=== PATIENT | female | born 1970 | race Caucasian/White ===

== ENCOUNTER 2016-06-25 06:28 | Day surgery (SDC) | payer OTHER ==
[2016-04-29 14:30] VITALS: BMI 34.0
--- NOTE | 2016-05-03 20:42 | HISTORY & PHYSICAL EXAMINATION ---
DATE OF ADMISSION: 05/07/2016 SUBJECTIVE AND CHIEF COMPLAINT: Left shoulder pain. HISTORY OF PRESENT ILLNESS: The patient is a 45-year-old female who follows up with left shoulder pain. She states that the pain was nontraumatic in nature. The symptoms occur constantly. She describes the pain as aching, burning and sharp at times. She has tried cortisone injections and physical therapy with no relief. She would like to proceed with subacromial decompression of the left shoulder with possible SLAP repair with possible biceps tenodesis. PAST MEDICAL HISTORY: Significant for hypertension, luk-vdibiqk-gcsltzvoq diabetes, shortness of breath with climbing up a flight of stairs and walking, GERD. PAST SURGICAL HISTORY: C-spine surgery, section, lymph node removal of left arm. SOCIAL HISTORY: She denies alcohol. She denies smoking or tobacco use. She denies IV drug use or illegal drug use. She lives in a 2-anthony house. She is currently on disability. FAMILY HISTORY: Significant for dad having a heart attack. MEDICATIONS: Fluoxetine 20 mg 1 tablet in the morning, lisinopril 20 mg 1 tablet every day, metformin 500 mg 2 times a day, Neurontin 300 mg p.r.n. ALLERGIES: AMOXICILLIN AND PCN. REVIEW OF SYSTEMS: She denies fevers, chills, headaches, weight loss, double vision, blurry vision, sore throat, hearing loss, tremors, dizziness, numbness or tingling, tired, thirsty, hot and cold intolerance, abdominal pain, nausea, vomiting, diarrhea, chest pain, swelling into the legs or feet, frequency going to the bathroom, pain and burning with urination, wheezing, cough, shortness of breath, depression, suicide, thoughts to harm herself or harm others, nervousness or anxiousness. She is positive for joint pain, stiffness and swelling of the left shoulder. OBJECTIVE: GENERAL APPEARANCE: The patient is a 45-year-old female who is sitting in no acute distress, well dressed, well nourished. She is awake, alert and oriented x3. PHYSICAL EXAMINATION: VITAL SIGNS: She is 5 feet 6 inches tall, 214 pounds, blood pressure 144/94. HEENT: Extraocular movements are intact. PERRLA. Mucosa is moist. No septal deviation. NECK: Supple with no lymphadenopathy, no JVD, no thyromegaly. HEART: Regular rate and rhythm without murmurs or gallops. LUNGS: Clear to auscultation. No wheezing or rhonchi. ABDOMEN: Soft, nontender, nondistended. Normal bowel sounds. No hepatosplenomegaly. EXTREMITIES: Paying particular attention to the left shoulder, she has a decreased range of motion, active forward flexion to 90 degrees, abduction to 90 degrees, external rotation to 45 degrees. She has a positive [place] Kory test, positive empty can test, positive Neer test, negative [place]. NEUROLOGIC: Cranial nerves II-XII are intact. Pulses were compared bilaterally and were equal. IMAGING: MRI shows tearing of the superior glenoid labrum, mild supraspinatus tendinopathy, and early arthritic changes of the acromioclavicular joint. IMPRESSION: Left shoulder pain with possible tear of the superior labrum. PLAN: The patient will be scheduled for a subacromial decompression of the left shoulder with possible SLAP repair with possible biceps tenodesis. The patient has failed conservative therapy including cortisone injections and physical therapy. She wishes to proceed with a left shoulder subacromial decompression, possible biceps tenodesis, possible SLAP repair. Risks and benefits to surgery were discussed that included but not limited to infection, DVT, pain, stiffness, need for revision surgeries, failure to relieve all symptoms, re-tear, damage to blood vessels, nerve damage and anesthesia risks were all discussed with the patient and she wishes to proceed. All questions were answered to her satisfaction. JOSE ELIAS
--- NOTE | 2016-06-22 11:26 | HISTORY & PHYSICAL EXAMINATION ---
DATE OF ADMISSION: 06/25/2016 SUBJECTIVE CHIEF COMPLAINT: Left shoulder pain. HISTORY OF PRESENT ILLNESS: The patient is a 45-year-old female who follows up with left shoulder pain, states that the pain is nontraumatic in nature. Symptoms occur constantly. She describes the pain as aching, burning and sharp at times. She has tried cortisone injections and physical therapy without any relief. She would like to proceed with a subacromial decompression left shoulder, possible SLAP repair with possible biceps tenodesis. PAST MEDICAL HISTORY: Significant for hypertension, non-insulin dependent diabetes, shortness of breath with climbing up a flight of stairs while walking and GERD. PAST SURGICAL HISTORY: C-spine surgery, section, lymph node removal of the left arm. SOCIAL HISTORY: She denies alcohol. She denies smoking or tobacco use. She denies IV drug use or illegal drug use. She lives in a 2-anth[address] house. She is currently on disability. FAMILY HISTORY: Significant for dad having a heart attack. MEDICATIONS: Fluoxetine 20 mg 1 tab in the morning, lisinopril 20 mg 1 tablet daily, metformin 500 mg 2 times daily, Neurontin 300 mg p.r.n., metformin 25 mg 1 tab daily. ALLERGIES: AMOXICILLIN AND PENICILLIN. REVIEW OF SYSTEMS: She denies fevers, chills, headaches, weight loss, double vision, blurry vision, sore throat, hearing loss, tremors, dizziness, numbness or tingling, tired, thirsty, hot and cold intolerance, abdominal pain, nausea, vomiting, diarrhea, chest pain, swelling into the legs or feet, frequency going to the bathroom, pain or burning with urination, wheezing, cough, shortness of breath, depression, thoughts to harm herself or harm others, nervousness or anxiousness. She is positive for joint pain, stiffness and swelling of the left shoulder. OBJECTIVE: GENERAL APPEARANCE: The patient is a 45-year-old female sitting in no acute distress, well dressed, well nourished. She is awake, alert and oriented x3. VITAL SIGNS: She is 5 foot 6 inches tall, 214 pounds, blood pressure is 140/80. HEAD, EYES, EARS, NOSE, AND THROAT: Extraocular movements are intact. PERRLA. Mucosa was moist. No septal deviation. NECK: Supple with no lymphadenopathy, no JVD, no thyromegaly. HEART: Regular rate and rhythm without murmurs or gallops. LUNGS: Clear to auscultation with no wheezing or rhonchi. ABDOMEN: Soft, nontender, nondistended. Normal bowel sounds, no hepatosplenomegaly. EXTREMITIES: Paying particular attention to the left shoulder. She has decreased range of motion, active forward flexion to 90 degrees, abduction to 90 degrees, external rotation of 45 degrees. She has a positive Terrazas-Kory test, positive empty can test, positive Neer impingement test. Negative [place]. NEUROLOGIC EXAMINATION: Cranial nerves II-XII are intact. Pulses were compared bilaterally and were equal. IMAGING: MRI shows tearing of the superior glenoid labrum, supraspinatus tendinopathy and early arthritic changes in the AC joint. IMPRESSION: Left shoulder pain with possible tear of the superior labrum. PLAN: The patient is scheduled for subacromial decompression of the left shoulder with possible SLAP repair and possible biceps tenodesis. The patient has failed conservative therapies including cortisone injections and physical therapy. She wishes to proceed with a left shoulder subacromial decompression, possible biceps tenodesis, possible SLAP repair. Risks and benefits to surgery were discussed and included but not limited to infection, DVT, pain, stiffness, need for revision surgeries, failure to relieve all symptoms, retear, damage to blood vessels, nerve damage and anesthesia risks were all discussed and the patient wishes to proceed. All questions were answered to her satisfaction. JOSE ELIAS
[~2016-06-25] VITALS: Ht 167.6 cm; Wt 97.3 kg
[~2016-06-25 06:28] MED LIST: ALLERGY OTC PO; FLUO20CA35 PO; GABA-113 PO; GLC/500 PO; LACTATED RINGER'S 1000ML 1,000 ML IV SCH; LISI-461 PO; VANCOMYCIN 1GM/270ML NSS 270 ML IV SCH; ZNTT/150 PO
[2016-06-25] MEDS ORDERED: ROPIVACAINE 0.5% 5 MG/ML 30 ML VIAL ONE (06:34)
--- NOTE | 2016-06-25 06:48 | History & Physical Bridge Note ---
H&P Re-Evaluation Bridge Note: I have examined the patient, reviewed the History & Physical and in the interval since the performance of the History & Physical I have noted the following changes of clinical significance: No changes noted
[2016-06-25] MEDS ORDERED: DULO-24 PO (07:06)
[2016-06-25] MEDS ORDERED: METO25TA3 PO (07:11)
--- NOTE | 2016-06-25 07:18 | DIAGNOSTIC IMAGING REPORT ---
CHEST 2 VIEWS ROUTINE HISTORY: PREOPERATIVE EVALUATION COMPARISON: Chest 03/12/2015. FINDINGS: The lungs are clear. Cardiac silhouette is normal in size. No pleural effusions. No pneumothorax. Cervical spinal fusion hardware. IMPRESSION: No acute process. Electronically signed by: Romeo Gimenez M.D. 06/25/2016 7:17 AM Dictated Date/Time: 06/25/2016 7:16 AM
[2016-06-25 07:24] VITALS: BP 121/88; PULSE 84; TEMP 36.8; O2SAT 95; Ht 167.6 cm; Wt 97.3 kg
[2016-06-25] MEDS ORDERED: PROPOFOL IV EMULSION 10 MG/ML 20 ML VIAL IV ONE (08:07)
[2016-06-25] MEDS ORDERED: ONDANSETRON INJ 2 MG/ML 2 ML VIAL ONE (08:07)
[2016-06-25] MEDS ORDERED: MIDAZOLAM HCL 1 MG/ML 2ML VIAL ONE (08:07)
[2016-06-25] MEDS ORDERED: LIDOCAINE HCL 2% 2 ML VIAL (20MG/ML) ONE (08:07)
[2016-06-25] MEDS ORDERED: DEXAMETHASONE SOD INJ 4 MG/ML VIAL ONE (08:07)
[2016-06-25] MEDS ORDERED: FENTANYL CITRATE INJ 50 MCG/1 ML 2 ML VIAL ONE (08:07)
[2016-06-25 08:11] LABS: BUN/CREATININE RATIO 12.9 (10-20); CALCIUM 8.6 mg/dl (8.5-10.1); CREATININE 0.89 mg/dl (0.60-1.20); POTASSIUM 3.9 mmol/L (3.5-5.1)
[2016-06-25] MEDS ORDERED: SCOPOLAMINE 1.5 MG TDSY TD ONE ×2 (08:37→08:45)
[2016-06-25] MEDS ORDERED: LABETALOL HCL IV 5 MG/ML 20ML IV PRN (08:45)
[2016-06-25] MEDS ORDERED: ATROPINE SULFATE 0.1 MG/ML 5ML SYR IV PRN (08:45)
[2016-06-25] MEDS ORDERED: PROMETHAZINE HCL INJ 12.5 MG in SODIUM CHLORIDE 0.9% 50ML 50 ML IV PRN (08:45)
[2016-06-25] MEDS ORDERED: KETOROLAC TROMETHAMINE 30 MG/ML VIAL IV. PRN (08:45)
[2016-06-25] MEDS ORDERED: ONDANSETRON INJ 2 MG/ML 2 ML VIAL IV PRN ×2 (08:45→11:30)
[2016-06-25] MEDS ORDERED: FENTANYL CITRATE INJ 50 MCG/1 ML 2 ML VIAL IV PRN (08:45)
[2016-06-25] MEDS ORDERED: BUPIVACAINE 0.5 % 5 MG/1 ML MPF 30ML VIAL ONE (09:48)
[2016-06-25] MEDS ORDERED: LIDOCAINE/EPINEPHRINE 1% 20 ML VIAL ONE (09:48)
[2016-06-25] MEDS ORDERED: NEOSTIGMINE METHYLSULFATE 5 MG/5 ML SYR ONE (10:36)
[2016-06-25] MEDS ORDERED: GLYCOPYRROLATE INJ 0.2 MG/ML VIAL ONE (10:36)
[2016-06-25] MEDS ORDERED: ROCURONIUM BROMIDE 10 MG/ML 5 ML VIAL ONE (10:36)
--- NOTE | 2016-06-25 11:20 | [facility] Post Operative Brief Note ---
Immediate Operative Summary Operative Date Jun 25, 2016. Pre-Operative Diagnosis Left shoulder impingement, SLAP tear, biceps tear, synovitis Post-Operative Diagnosis Same as preop Procedure(s) Performed Left Shoulder Arthroscopy Subacromial Decompression, Biceps Tenodesis, extensive debridement Surgeon Dr. Joya Scheme Technician Surgeon(s) Henna Davies PA-C Estimated Blood Loss minimal Findings above Specimens none, as per surgeon Drains 0 Anesthesia geta Complication(s) None Disposition Recovery Room / PACU
[2016-06-25] MEDS ORDERED: OXYC-57 PO (11:21)
--- NOTE | 2016-06-25 11:26 | Discharge Instructions ---
Discharge Instructions Date of Service Jun 25, 2016. Admission Reason for Admission: Left Shoulder Superior Glenoid Labrum Lesion Discharge Discharge Diagnosis / Problem: Left shoulder Arthroscopy Biceps tenodesis, Subacromial decrompression Discharge Goals Goal(s): Decrease discomfort, Improve function Activity Recommendations Activity Limitations: per Instructions/Follow-up section . Instructions / Follow-Up Instructions / Follow-Up [facility] DISCHARGE INSTRUCTIONS: SHOULDER ARTHROSCOPY without Distal Clavicle Excision SELF CARE INSTRUCTIONS AFTER: A. You are allowed to use your arm actively as comfort allows. Recommend NOT doing repetitive overhead activity or heavy lifting. B. You should start Physical Therapy within 1-3 days from your surgery. You will be provided a prescription with specific restrictions, if needed, at time of discharge. C. You can discontinue the sling as comfort allows within one to two days after surgery. A. At 48 hours post-operatively, you may change your dressing. . (Leave white steri-strips intact if present). Use band-aids and change daily. You are allowed to shower at this time and get the incision area wet, but DO NOT soak or submerge incision area in water. (No baths, swimming pools, hot tubs) B. Do NOT apply soap or any ointment/lotions directly over incision. C. You may use ice as needed to operative shoulder SPECIAL CARE INSTRUCTIONS: VERY IMPORTANT TO READ AND REVIEW A. There are a few signs you need to watch for after you are home. Call [facility] at [phone] if you experience any of the following: a. Increased severe shoulder pain. Some pain is expected especially when you exercise b. Increased swelling in your shoulder or arm; pain or swelling in either upper extremity. (Note: swelling and stiffness is normal and expected for several weeks post op, depending on type of shoulder surgery you had). c. Any fluid or drainage from the incision; redness of the incision. d. Shortness of breath or chest pain. B. Please call [facility] at [phone] if you have any questions or concerns about your operation or recovery. C. Call your physician if: a. Temperature is greater than 101 degrees (F). b. Pain is not relieved by prescribed pain medications. c. Increase drainage or redness from incision. d. Unanswered questions or concerns. D. Pain Medication: a. You will be prescribed pain medication upon discharge that should last till your first post-operative appointment. b. You may also take Advil or Ibuprofen between medication doses if you do not have any contraindication to taking them. c. You may also take Advil or Ibuprofen in place of your pain medication if the pain is tolerable. d. If you experience nausea and/or skin rash, discontinue this medication and contact our office for an alternative medication. e. Caution- narcotic pain medication can cause constipation. FOLLOW UP VISIT: Please call [facility] at [phone] to schedule a follow up appointment 10-14 days from your surgery date. Current Hospital Diet Patient's current hospital diet: Regular Diet Discharge Diet Recommended Diet: Regular Diet Procedures Procedures Performed: Left Shoulder Arthroscopy Subacromial Decompression, Biceps Tenodesis, extensive debridement Pending Studies Studies pending at discharge: no Medical Emergencies . Who to Call and When: Medical Emergencies: If at any time you feel your situation is an emergency, please call 911 immediately. . Non-Emergent Contact Non-Emergency issues call your: Surgeon Call Non-Emergent contact if: temperature is above 101.5, your pain is worsening, wound has increased drainage, wound has increased redness . "Provider Documentation" section prepared by Aleksey Ny. . VTE Core Measure Inpt VTE Proph given/why not?: Treatment not indicated [place] Drug Monitoring Program Search Results: patient reviewed within database, no issues identified
[2016-06-25] MEDS ORDERED: IBUPROFEN 200 MG TAB PO PRN (11:30)
[2016-06-25] MEDS ORDERED: OXYCODONE/ACETAMINOPHEN 5-325 TAB PO PRN (11:30)
[2016-06-25 12:00] VITALS: BP 104/78; PULSE 87; TEMP 36.6; O2SAT 94
[2016-06-25 12:32] VITALS: BP 103/73; PULSE 97; TEMP 36.6; O2SAT 94
--- NOTE | 2016-06-25 12:47 | OPERATIVE REPORT ---
DATE OF OPERATION: 06/25/2016 PREOPERATIVE DIAGNOSES: Left shoulder impingement, SLAP tear, biceps tear, synovitis. POSTOPERATIVE DIAGNOSES: Same. PROCEDURES: Left shoulder subacromial decompression, biceps tenodesis, and extensive debridement. SURGEON: Dr. Joya. FITNESS AND WELLNESS INSTRUCTOR: Aleksey Ny PA-C who was necessary for assistance of procedure with positioning, prepping, draping, retraction, passing of sutures and closure. ANESTHESIA: General endotracheal anesthesia with interscalene block. SPECIMENS: None. COMPLICATIONS: None. ESTIMATED BLOOD LOSS: Minimal. INDICATIONS: The patient is a 46-year-old female with longstanding pain in the left shoulder. She has failed conservative measures including cortisone injection, physical therapy, and anti-inflammatory medications. Failing conservative measures, she wished to proceed with arthroscopy. Risks, benefits, and alternatives of surgery including but not limited to infection, DVT, pain, stiffness, need for revision surgery, failure to relieve all symptoms, damage to blood vessels, damage to nerves, risks of anesthesia discussed with the patient and she wished to proceed. PROCEDURE IN DETAIL: The patient was identified, laterality was confirmed and marked. She received a preoperative antibiotic as well as interscalene block. She was transferred to the operating room, placed in supine position, induced under general endotracheal anesthesia. She was then safely transferred to lateral decubitus position, secured by a patel bag and axillary roll was placed. All pressure points were well padded. Limb was placed in 10 pounds of lateral traction and then prepped and draped in usual sterile manner with ChloraPrep. I made a standard posterior viewing portal, made through a stab incision, bluntly entered the glenohumeral joint under spinal localization, established anterior superior lateral portal. She had degenerative tearing of the anterior, superior, and posterior aspect of the glenoid labrum. This was debrided back to a stable base utilizing a shaver. The superior labrum was probed and found to be stable to the superior glenoid. She had fairly degenerative tearing of the intra-articular portion of the biceps tendon near the biceps anchor. The more proximal portion appeared to be relatively normal. Given the tearing was greater than 50% thickness of the tendon, I elected to proceed with biceps tenodesis. I passed 2 sutures through the biceps tendon in a luggage tag fashion and then released the biceps from its insertion. I placed the 4 sutures into a 4.5 mm footprint anchor. I then made a pilot teacher hole in the bicipital groove. I loaded the anchor into this hole, tensioned the sutures and then impacted the anchor, locked the anchor and cut the sutures flush. We had good stability to the tenodesis. Synovitic change in the anterior aspect of the shoulder was debrided utilizing combination of zana as well as ablator. She had some minor undersurface fraying of the supraspinatus that was debrided. I removed the instrumentation from the joint, entered the subacromial space and established a lateral portal. She had fairly thickened bursa that was debrided. The bursal side of the rotator cuff was relatively normal. I then released the CA ligament with cautery and then performed a subacromial decompression, first removing the anterior inferior spur from laterally and then completing it with a cutting block technique. All instrumentation was then removed from the shoulder. Port sites were closed with nylon. Sterile dressing was applied and sling placed. All needle and sponge counts were correct at the end of the procedure. The patient was transferred to the PACU in stable condition without apparent complication. I attest to the content of the Intraoperative Record and any orders documented therein. Any exceptions are noted below. JOSE ELIAS
[2016-06-25 13:00] VITALS: BP 107/76; PULSE 94; TEMP 36.5; O2SAT 94
--- NOTE | 2016-06-25 13:27 | Anesthesiology Progress Note ---
Anesthesia Post Op Note Date & Time Jun 25, 2016 at 13:26 Vital Signs Pain Intensity: 1 Vital Signs Past 12 Hours Date Time Temp Pulse Resp B/P Pulse Ox O2 Delivery O2 Flow Rate FiO2 06/25/16 12:32 36.6 97 16 103/73 94 Room Air 0 06/25/16 12:00 36.6 87 16 104/78 94 Room Air 0 06/25/16 11:55 36.4 82 16 126/82 94 Room Air 06/25/16 11:45 88 16 130/84 94 Room Air 06/25/16 11:35 79 16 121/83 98 Room Air 06/25/16 11:25 83 16 124/77 97 Mask 10 06/25/16 11:15 37.2 93 16 118/82 97 Mask 10 06/25/16 09:45 37.2 88 16 131/85 95 Mask 06/25/16 09:35 82 18 130/89 98 Mask 10 06/25/16 09:25 81 16 128/90 99 Mask 10 06/25/16 09:17 37.6 90 16 134/83 95 Mask 10 06/25/16 07:24 36.8 84 18 121/88 95 Room Air Notes Mental Status: alert / awake / arousable, participated in evaluation Pt Amnestic to Procedure: Yes Nausea / Vomiting: adequately controlled Pain: adequately controlled Airway Patency, RR, SpO2: stable & adequate BP & HR: stable & adequate Hydration State: stable & adequate Anesthetic Complications: no major complications apparent
[2016-08-04] MEDS ORDERED: DIPH25CA65 PO (09:51)
[2016-08-04] MEDS ORDERED: METF1TAB53 PO (09:51)
[2016-09-08] MEDS ORDERED: PRLSR20 PO (09:49)
[2016-09-08] MEDS ORDERED: SITA50TA PO (09:49)
[2016-09-08] MEDS ORDERED: METF1TAB53 PO (09:49)
[2016-09-14] MEDS ORDERED: VITAMIN B12 PO (09:01)
== END 2016-06-25 13:30 | disposition home or self-care (01) ==
LOC: C.ACU 06:28
PROVIDERS: ATTEND Orthopaedic Surgery
DX: M25.812 Other specified joint disorders, left shoulder (principal); S43.432A Superior glenoid labrum lesion of left shoulder, initial encounter; S46.212A Strain of muscle, fascia and tendon of other parts of biceps, left arm, initial encounter; X58.XXXA Exposure to other specified factors, initial encounter; I10 Essential (primary) hypertension; E11.9 Type 2 diabetes mellitus without complications; K21.9 Gastro-esophageal reflux disease without esophagitis; Z86.73 Personal history of transient ischemic attack (TIA), and cerebral infarction without residual deficits; Z79.899 Other long term (current) drug therapy; Z79.84 Long term (current) use of oral hypoglycemic drugs

== ENCOUNTER → 2016-08-11 | Day surgery (SDC) | payer OTHER ==
[2016-08-04 09:51] VITALS: Ht 167.6 cm; Wt 96.4 kg
[~2016-08-11] VITALS: Ht 167.6 cm; Wt 96.4 kg
[~2016-08-11] MED LIST changes: -ALLERGY OTC PO; +DIPH25CA65 PO; +DULO-24 PO; +FENTANYL CITRATE INJ 50 MCG/1 ML 2 ML VIAL ONE; -FLUO20CA35 PO; -GLC/500 PO; -LACTATED RINGER'S 1000ML 1,000 ML IV SCH; +LIDOCAINE HCL 2% 2 ML VIAL (20MG/ML) ONE; +METF1TAB53 PO; +METO25TA3 PO; +MIDAZOLAM HCL 1 MG/ML 2ML VIAL ONE; +OXYC-57 PO; +PRLSR20 PO; +PROPOFOL IV EMULSION 10 MG/ML 20 ML VIAL IV ONE; +SITA50TA PO; +SODIUM CHLORIDE 0.9% 500ML 500 ML IV ONE; -VANCOMYCIN 1GM/270ML NSS 270 ML IV SCH; +VITAMIN B12 PO
--- NOTE | 2016-08-11 14:06 | Endo History and Physical ---
History & Physical Date of Service: Aug 11, 2016. Chief Complaint: DYSPHAGIA, EPIGASTIC PAIN, REFLUX Referring Physician: DR. MENSAH History of Present Illness 46 yo CF who presents for EGD secondary to GERD, Epigastric abdominal pain, and Dysphagia. Past Medical History Anxiety, Reflux, Hypertension, Depression Past Surgical History Hx Cardiac Surgery: Yes (CARDIAC CATH-NO STENTS) Hx Abdominal Surgery: Yes (,LAPAROSCOPY FOR ENDOMETRIOSIS X 2) Hx Post-Op Nausea and Vomiting: Yes (SEVERE NAUSEA/VOMITING) Hx Cancer Surgery: No Hx Thoracic Surgery: No Hx Orthopedic: Yes (CERVICAL FUSION, LEFT SHOULDER ARTHROSCOPY) Hx Urinary Tract Surgery: No Family History Colon CA Social History Smoking Status: Never Smoker Hx Substance Use: No Hx Alcohol Use: Yes (RARELY) Allergies Coded Allergies: Penicillins (Verified Allergy, Unknown, RASH, REDDNESS AND ITCHING, 08/04/16 ) Current Medications Reported Home Medications Medications Dose Route/Sig Max Daily Dose Days Date Category Benadryl Allergy (Diphenhydramine Hcl) 25 Mg Cap 1 Cap PO HS PRN 30 08/04/16 Reported Glucophage Ext Rel (Metformin Hcl) 1,000 Mg Tab 1,000 Mg PO QAM 08/04/16 Reported Percocet 5MG/325MG (Oxycodone/Acetaminophen) Tab 1-2 Tablets PO Q4H PRN 06/25/16 Rx Toprol-Xl (Metoprolol Succinate) 25 Mg Tabcr 25 Mg PO QAM 06/25/16 Reported Cymbalta (Duloxetine HCl) 20 Mg Cap 1 Cap PO QAM 30 06/25/16 Reported Zantac (Ranitidine HCl) 150 Mg Tab 150 Mg PO DAILY PRN 04/29/16 Reported Neurontin (Gabapentin) 300 Mg Cap 300 Mg PO HS PRN 04/29/16 Reported Zestril (Lisinopril) 10 Mg Tab 20 Mg PO QAM 03/12/15 Reported Vital Signs Weight (Kilograms): 96.36 Height (Feet): 5 Height (Inches): 6 Date Time Temp Pulse Resp B/P (MAP) Pulse Ox O2 Delivery O2 Flow Rate FiO2 08/11/16 13:41 37.0 88 16 131/87 (102) 96 Room Air Physical Exam General Appearance: WD/WN, no apparent distress Respiratory/Chest: Auscultation: breath sounds normal Cardiovascular: Heart Auscultation: RRR Abdomen: Bowel Sounds: normal Inspection & Palpation: soft, non-distended, no tenderness, guarding & rebound Assessment and Plan Assessment: 46 yo CF who presents for EGD secondary to GERD, Epigastric abdominal pain, and Dysphagia. Plan: Proceed with EGD.
--- NOTE | 2016-08-11 14:27 | Discharge Instructions ---
Endoscopy Patient Instructions Date / Procedure(s) Performed Aug 11, 2016. EGD Allergy Information Coded Allergies: Penicillins (Verified Allergy, Unknown, RASH, REDDNESS AND ITCHING, 08/04/16 ) Discharge Date / Findings Aug 11, 2016. Gastritis s/p biopsies Reflux esophagitis Medication Instructions 1) Start Omeprazole 20mg by mouth each morning 1/2 hour prior to breakfast. 2) OK to resume all medications today as prescribed Reported Home Medications Medications Dose Route/Sig Max Daily Dose Days Date Category Benadryl Allergy (Diphenhydramine Hcl) 25 Mg Cap 1 Cap PO HS PRN 30 08/04/16 Reported Glucophage Ext Rel (Metformin Hcl) 1,000 Mg Tab 1,000 Mg PO QAM 08/04/16 Reported Percocet 5MG/325MG (Oxycodone/Acetaminophen) Tab 1-2 Tablets PO Q4H PRN 06/25/16 Rx Toprol-Xl (Metoprolol Succinate) 25 Mg Tabcr 25 Mg PO QAM 06/25/16 Reported Cymbalta (Duloxetine HCl) 20 Mg Cap 1 Cap PO QAM 30 06/25/16 Reported Zantac (Ranitidine HCl) 150 Mg Tab 150 Mg PO DAILY PRN 04/29/16 Reported Neurontin (Gabapentin) 300 Mg Cap 300 Mg PO HS PRN 04/29/16 Reported Zestril (Lisinopril) 10 Mg Tab 20 Mg PO QAM 03/12/15 Reported Provider Instructions Activity Restrictions - No exercising or heavy lifting for 24 hours. - Do not drink alcohol the day of the procedure. - Do not drive a car or operate machinery until the day after the procedure. - Do not make any important decisions or sign important papers in 24 hours after the procedure. Following Day: - Return to full activity which may include returning to work/school. Diet Start your diet with liquids and light foods (jello, soup, juice, toast). Then eat your usual diet if not nauseated. Treatment For Common After Affects For mild abdominal pain, bloating, or excessive gas: - Rest - Eat lightly - Lie on right side Follow-Up Information Follow-up with DR. MENSAH as scheduled Anesthesia Information What You Should Know You have had a procedure that required some medicine to reduce anxiety and discomfort. This treatment is called moderate sedation. After receiving the treatment, you may be sleepy, but you will be able to breathe on your own. The effects of the treatment may last for several hours. Follow these instructions along with Activity/Diet recommendations noted above: * Do NOT do anything where dizziness or clumsiness would be dangerous. * Rest quietly at home today, then you can be up and about tomorrow. * Have a responsible person stay with you the rest of today. * You may have had an I.V. today. If so, you may take the dressing off later today. Recommendations Call your doctor if: * Trouble breathing * Continuous vomiting for more than 24 hours * Temperature above 101 degrees * Severe abdominal pain or bloating * Pain not relieved by pain medicine ordered * There is increased drainage or redness from any incision * A large amount of rectal bleeding greater than 2-3 tablespoons. (If you had a polyp/s removed or have hemorrhoids, a small amount of blood - from the rectum is to be expected.) * You have any unanswered questions or concerns. IN THE EVENT OF A SERIOUS EMERGENCY, GO TO THE NEAREST EMERGENCY ROOM Your discharge instructions were prepared by provider Henok Schmitz. Patient Instructions Signature Page Carla Collins Patient (or Guardian) Signature/Date: I have read and understand the instructions given to me by my caregivers. Caregiver/RN/Doctor Signature/Date: The above-named patient and/or guardian has received patient instructions on this date. + Original Patient Signature Page (only) stays with chart. Please make copy for patient.
--- NOTE | 2016-08-11 14:33 | GI REPORT ---
Procedure Date: 08/11/2016 1:55 PM Procedure: Upper GI endoscopy Indications: Epigastric abdominal pain, Dysphagia, Gastro-esophageal reflux disease Medicines: Monitored Anesthesia Care Complications: No immediate complications. Estimated Blood Loss: Estimated blood loss: none. Procedure: Pre-Anesthesia Assessment: - Prior to the procedure, a History and Physical was performed, and patient medications and allergies were reviewed. The patient's tolerance of previous anesthesia was also reviewed. The risks and benefits of the procedure and the sedation options and risks were discussed with the patient. All questions were answered, and informed consent was obtained. Prior Anticoagulants: The patient has taken no previous anticoagulant or antiplatelet agents. ASA Grade Assessment: II - A patient with mild systemic disease. After reviewing the risks and benefits, the patient was deemed in satisfactory condition to undergo the procedure. After obtaining informed consent, the endoscope was passed under direct vision. Throughout the procedure, the patient's blood pressure, pulse, and oxygen saturations were monitored continuously. The scope was introduced through the mouth, and advanced to the second part of duodenum. The upper GI endoscopy was accomplished without difficulty. The patient tolerated the procedure well. Findings: LA Grade B (one or more mucosal breaks greater than 5 mm, not extending between the tops of two mucosal folds) esophagitis with no bleeding was found. Localized mild inflammation characterized by erosions was found in the gastric antrum. Biopsies were taken with a cold forceps for histology. The examined duodenum was normal. Impression: - LA Grade B reflux esophagitis. - Gastritis. Biopsied. - Normal examined duodenum. Recommendation: - Resume previous diet. - Continue present medications. - Await pathology results. - Return to primary care physician as previously scheduled. Henok Schmitz, DO 08/11/2016 2:33:17 PM This report has been signed electronically. Note Initiated On: 08/11/2016 1:55 PM I attest to the content of the Intraoperative Record and orders documented therein, exceptions below
[2016-08-11 14:39] VITALS: BP 147/93; PULSE 93; O2SAT 94
--- NOTE | 2016-08-11 14:59 | Anesthesiology Progress Note ---
Anesthesia Post Op Note Date & Time Aug 11, 2016 at 14:59 Vital Signs Pain Intensity: 3 Vital Signs Past 12 Hours Date Time Temp Pulse Resp B/P (MAP) Pulse Ox O2 Delivery O2 Flow Rate FiO2 08/11/16 14:39 93 16 147/93 (111) 94 Room Air 08/11/16 14:24 89 16 132/88 (103) 94 Room Air 08/11/16 13:41 37.0 88 16 131/87 (102) 96 Room Air Notes Mental Status: alert / awake / arousable, participated in evaluation Pt Amnestic to Procedure: Yes Nausea / Vomiting: adequately controlled Pain: adequately controlled Airway Patency, RR, SpO2: stable & adequate BP & HR: stable & adequate Hydration State: stable & adequate Anesthetic Complications: no major complications apparent
== END | disposition home or self-care (01) ==
LOC: C.GI 13:12
PROVIDERS: ATTEND Internal Medicine
DX: R13.10 Dysphagia, unspecified (principal); K21.0 Gastro-esophageal reflux disease with esophagitis; K29.70 Gastritis, unspecified, without bleeding; I10 Essential (primary) hypertension; F32.9 Major depressive disorder, single episode, unspecified; F41.9 Anxiety disorder, unspecified; Z80.0 Family history of malignant neoplasm of digestive organs; Z79.84 Long term (current) use of oral hypoglycemic drugs; Z79.899 Other long term (current) drug therapy

== ENCOUNTER → 2016-09-13 | Day surgery (SDC) | payer OTHER ==
[2016-09-08 09:50] VITALS: Ht 167.6 cm; Wt 96.4 kg
[~2016-09-13] VITALS: Ht 167.6 cm; Wt 96.4 kg
[~2016-09-13] MED LIST changes: -FENTANYL CITRATE INJ 50 MCG/1 ML 2 ML VIAL ONE; -MIDAZOLAM HCL 1 MG/ML 2ML VIAL ONE; -ZNTT/150 PO
[2016-09-13 08:23] VITALS: TEMP 36.4
--- NOTE | 2016-09-13 08:42 | Endo History and Physical ---
History & Physical Date of Service: Sep 13, 2016. Chief Complaint: Rectal Bleeding, Change in bowel habits. Referring Physician: Christiano History of Present Illness 46 yo CF who presents for colonoscopy secondary to rectal bleeding and change in bowel habits. Past Medical History Anxiety, Reflux, Hypertension, Depression Past Surgical History Hx Cardiac Surgery: Yes (CARDIAC CATH-NO STENTS) Hx Internal Defibrillator: No Hx Pacemaker: No Hx Abdominal Surgery: Yes (,LAPAROSCOPY FOR ENDOMETRIOSIS X 2) Hx of Implantable Prosthesis: No Hx Post-Op Nausea and Vomiting: Yes (SEVERE NAUSEA/VOMITING) Hx Cancer Surgery: No Hx Thoracic Surgery: No Hx Orthopedic: Yes (CERVICAL FUSION, LEFT SHOULDER ARTHROSCOPY) Hx Urinary Tract Surgery: No Family History Colon CA Social History Smoking Status: Never Smoker Hx Substance Use: No Hx Alcohol Use: Yes (RARELY) Allergies Coded Allergies: Penicillins (Verified Allergy, Unknown, RASH, REDDNESS AND ITCHING, ) Current Medications Reported Home Medications Medications Dose Route/Sig Max Daily Dose Days Date Category Glucophage Ext Rel (Metformin Hcl) 1,000 Mg Tab 1,000 Mg PO HS 09/08/16 Reported Januvia (Sitagliptin Phosphate) 50 Mg Tab 50 Mg PO QAM 09/08/16 Reported Prilosec (Omeprazole) 20 Mg Capcr 20 Mg PO QAM 09/08/16 Reported Benadryl Allergy (Diphenhydramine Hcl) 25 Mg Cap 1 Cap PO HS PRN 30 08/04/16 Reported Toprol-Xl (Metoprolol Succinate) 25 Mg Tabcr 25 Mg PO QAM 06/25/16 Reported Cymbalta (Duloxetine HCl) 20 Mg Cap 1 Cap PO QAM 30 06/25/16 Reported Neurontin (Gabapentin) 300 Mg Cap 300 Mg PO HS PRN 04/29/16 Reported Zestril (Lisinopril) 10 Mg Tab 20 Mg PO QAM 03/12/15 Reported Vital Signs Weight (Kilograms): 96.36 Height (Feet): 5 Height (Inches): 6 Date Time Temp Pulse Resp B/P (MAP) Pulse Ox O2 Delivery O2 Flow Rate FiO2 09/13/16 08:23 36.4 90 20 155/97 (116) 95 Room Air Physical Exam General Appearance: WD/WN, no apparent distress Respiratory/Chest: Auscultation: breath sounds normal Cardiovascular: Heart Auscultation: RRR Abdomen: Bowel Sounds: normal Inspection & Palpation: soft, non-distended, no tenderness, guarding & rebound Assessment and Plan Assessment: 46 yo CF who presents for colonoscopy secondary to rectal bleeding and change in bowel habits. Plan: Proceed with colonoscopy.
--- NOTE | 2016-09-13 09:00 | Discharge Instructions ---
Endoscopy Patient Instructions Date / Procedure(s) Performed Sep 13, 2016. Colonoscopy Allergy Information Coded Allergies: Penicillins (Verified Allergy, Unknown, RASH, REDDNESS AND ITCHING, ) Discharge Date / Findings Sep 13, 2016. Internal hemorrhoids Fair bowel prep Medication Instructions Stopped Medication(s): Metformin Restart Stopped Medication(s): OK to resume all medications today as prescribed Reported Home Medications Medications Dose Route/Sig Max Daily Dose Days Date Category Glucophage Ext Rel (Metformin Hcl) 1,000 Mg Tab 1,000 Mg PO HS 09/08/16 Reported Januvia (Sitagliptin Phosphate) 50 Mg Tab 50 Mg PO QAM 09/08/16 Reported Prilosec (Omeprazole) 20 Mg Capcr 20 Mg PO QAM 09/08/16 Reported Benadryl Allergy (Diphenhydramine Hcl) 25 Mg Cap 1 Cap PO HS PRN 30 08/04/16 Reported Toprol-Xl (Metoprolol Succinate) 25 Mg Tabcr 25 Mg PO QAM 06/25/16 Reported Cymbalta (Duloxetine HCl) 20 Mg Cap 1 Cap PO QAM 30 06/25/16 Reported Neurontin (Gabapentin) 300 Mg Cap 300 Mg PO HS PRN 04/29/16 Reported Zestril (Lisinopril) 10 Mg Tab 20 Mg PO QAM 03/12/15 Reported Provider Instructions Activity Restrictions - No exercising or heavy lifting for 24 hours. - Do not drink alcohol the day of the procedure. - Do not drive a car or operate machinery until the day after the procedure. - Do not make any important decisions or sign important papers in 24 hours after the procedure. Following Day: - Return to full activity which may include returning to work/school. Diet Start your diet with liquids and light foods (jello, soup, juice, toast). Then eat your usual diet if not nauseated. Treatment For Common After Affects For mild abdominal pain, bloating, or excessive gas: - Rest - Eat lightly - Lie on right side Follow-Up Information Follow-up with Christiano as scheduled Anesthesia Information What You Should Know You have had a procedure that required some medicine to reduce anxiety and discomfort. This treatment is called moderate sedation. After receiving the treatment, you may be sleepy, but you will be able to breathe on your own. The effects of the treatment may last for several hours. Follow these instructions along with Activity/Diet recommendations noted above: * Do NOT do anything where dizziness or clumsiness would be dangerous. * Rest quietly at home today, then you can be up and about tomorrow. * Have a responsible person stay with you the rest of today. * You may have had an I.V. today. If so, you may take the dressing off later today. Recommendations Call your doctor if: * Trouble breathing * Continuous vomiting for more than 24 hours * Temperature above 101 degrees * Severe abdominal pain or bloating * Pain not relieved by pain medicine ordered * There is increased drainage or redness from any incision * A large amount of rectal bleeding greater than 2-3 tablespoons. (If you had a polyp/s removed or have hemorrhoids, a small amount of blood - from the rectum is to be expected.) * You have any unanswered questions or concerns. IN THE EVENT OF A SERIOUS EMERGENCY, GO TO THE NEAREST EMERGENCY ROOM Your discharge instructions were prepared by provider Henok Schmitz. Patient Instructions Signature Page Carla Collins Patient (or Guardian) Signature/Date: I have read and understand the instructions given to me by my caregivers. Caregiver/RN/Doctor Signature/Date: The above-named patient and/or guardian has received patient instructions on this date. + Original Patient Signature Page (only) stays with chart. Please make copy for patient.
--- NOTE | 2016-09-13 09:17 | GI REPORT ---
Procedure Date: 09/13/2016 8:35 AM Procedure: Colonoscopy Indications: Rectal bleeding, Change in bowel habits Medicines: Monitored Anesthesia Care Complications: No immediate complications. Estimated Blood Loss: Estimated blood loss: none. Procedure: Pre-Anesthesia Assessment: - Prior to the procedure, a History and Physical was performed, and patient medications and allergies were reviewed. The patient's tolerance of previous anesthesia was also reviewed. The risks and benefits of the procedure and the sedation options and risks were discussed with the patient. All questions were answered, and informed consent was obtained. Prior Anticoagulants: The patient has taken no previous anticoagulant or antiplatelet agents. ASA Grade Assessment: II - A patient with mild systemic disease. After reviewing the risks and benefits, the patient was deemed in satisfactory condition to undergo the procedure. After I obtained informed consent, the scope was passed under direct vision. Throughout the procedure, the patient's blood pressure, pulse, and oxygen saturations were monitored continuously. The On-site loaner was introduced through the anus and advanced to the terminal ileum. The colonoscopy was performed without difficulty. The patient tolerated the procedure well. The quality of the bowel preparation was fair. The terminal ileum, ileocecal valve, appendiceal orifice, and rectum were photographed. Findings: A large amount of semi-solid stool was found in the entire colon, interfering with visualization. Lavage of the area was performed using a large amount, resulting in clearance with fair visualization. Non-bleeding internal hemorrhoids were found during retroflexion. The hemorrhoids were small. Impression: - Stool in the entire examined colon. - Non-bleeding internal hemorrhoids. - No specimens collected. Recommendation: - Resume previous diet. - Continue present medications. - Repeat colonoscopy in 3 years for surveillance. - Return to primary care physician as previously scheduled. Henok Schmitz DO 09/13/2016 9:17:07 AM This report has been signed electronically. Note Initiated On: 09/13/2016 8:35 AM I attest to the content of the Intraoperative Record and orders documented therein, exceptions below
[2016-09-13 09:27] VITALS: BP 130/86; PULSE 78; O2SAT 97
--- NOTE | 2016-09-13 09:33 | Anesthesiology Progress Note ---
Anesthesia Post Op Note Date & Time Sep 13, 2016 at 09:32 Vital Signs Pain Intensity: 0 Vital Signs Past 12 Hours Date Time Temp Pulse Resp B/P (MAP) Pulse Ox O2 Delivery O2 Flow Rate FiO2 09/13/16 09:27 78 18 130/86 (101) 97 Room Air 09/13/16 09:12 81 18 135/77 (96) 96 Room Air 09/13/16 08:57 90 16 160/86 (110) 96 Room Air 09/13/16 08:23 36.4 90 20 155/97 (116) 95 Room Air Notes Mental Status: alert / awake / arousable, participated in evaluation Pt Amnestic to Procedure: Yes Nausea / Vomiting: adequately controlled Pain: adequately controlled Airway Patency, RR, SpO2: stable & adequate BP & HR: stable & adequate Hydration State: stable & adequate Anesthetic Complications: no major complications apparent
== END | disposition home or self-care (01) ==
LOC: C.GI 07:49
PROVIDERS: ATTEND Internal Medicine
DX: K64.8 Other hemorrhoids (principal); K62.5 Hemorrhage of anus and rectum; R19.4 Change in bowel habit; Z80.0 Family history of malignant neoplasm of digestive organs; I10 Essential (primary) hypertension; K21.9 Gastro-esophageal reflux disease without esophagitis; F32.9 Major depressive disorder, single episode, unspecified; F41.9 Anxiety disorder, unspecified; Z79.84 Long term (current) use of oral hypoglycemic drugs; Z79.899 Other long term (current) drug therapy

== ENCOUNTER 2016-09-30 10:20 | Day surgery (SDC) | payer OTHER ==
[2016-09-14 09:04] VITALS: BMI 35.0
--- NOTE | 2016-09-14 09:37 | PAT Medication Instructions ---
Service Date Sep 14, 2016. Current Home Medication List Diphenhydramine Hcl (Benadryl Allergy), 2 CAP PO HS PRN for ALLERGY RELIEF Duloxetine HCl (Cymbalta), 1 CAP PO QAM Gabapentin (Neurontin), 300 MG PO HS PRN for Pain Lisinopril (Zestril), 20 MG PO QAM Metformin Hcl (Glucophage Ext Rel), 1,000 MG PO HS Metoprolol Succ (Toprol Xl) (Toprol-Xl), 25 MG PO QAM Omeprazole (Prilosec), 20 MG PO QAM Sitagliptin Phosphate (Januvia), 50 MG PO QAM [Vitamin B12], 1 TAB PO QAM Medication Instructions For Your Scheduled Surgery - Hold the following medications 48 hours prior to surgery: Metformin Hcl (Glucophage Ext Rel), 1,000 MG PO HS - Hold the following medications the morning of surgery: Sitagliptin Phosphate (Januvia), 50 MG PO QAM [Vitamin B12], 1 TAB PO QAM Lisinopril (Zestril), 20 MG PO QAM - Take the following medications the morning of surgery with a sip of water OTHERWISE NOTHING TO EAT OR DRINK AFTER MIDNIGHT: Metoprolol Succ (Toprol Xl) (Toprol-Xl), 25 MG PO QAM Omeprazole (Prilosec), 20 MG PO QAM Duloxetine HCl (Cymbalta), 1 CAP PO QAM - Take the following medications as scheduled the night before surgery: Diphenhydramine Hcl (Benadryl Allergy), 2 CAP PO HS PRN for ALLERGY RELIEF Gabapentin (Neurontin), 300 MG PO HS PRN for Pain If you have any questions please call us at [phone] or [phone] or [phone]
[2016-09-14 10:28] LABS: BASO % 0.3 %; BASO ABS # 0.02 K/uL (0-0.2); COMPLETE YES; EOS % 6.2 %; HEMATOCRIT 39.9 % (37-47); IG% 1.4 %; LYMPH % 27.1 %; LYMPH ABS # 1.71 K/uL (1.2-3.4); MEAN CELL VOLUME 86.9 fL (80-100); MEAN CORPUSCULAR HEMOGLOBIN 29.8 pg (25-34); MEAN CORPUSCULAR HGB CONC 34.3 g/dl (32-36); MEAN PLATELET VOLUME 8.5 fL (7.4-10.4); MONO % 5.2 %; NEUT % 59.8 %; PLATELET COUNT 239 K/uL (130-400); RED BLOOD COUNT 4.59 M/uL (4.2-5.4)
[2016-09-14 10:34] LABS: MANUAL MICROSCOPIC REQUIRED? NO; REVIEW REQ? NO; URINE APPEARANCE CLEAR (CLEAR); URINE BILIRUBIN NEG (NEG); URINE COLOR YELLOW; URINE NITRITE NEG (NEG); URINE PH 5.5 (4.5-7.5); URINE SPECIFIC GRAVITY 1.017 (1.000-1.030); UROBILINOGEN NEG (NEG)
[2016-09-14 10:37] LABS: PROTHROMBIN TIME (PATIENT) 10.6 SECONDS (9.0-12.0)
[2016-09-14 11:09] LABS: BUN/CREATININE RATIO 9.1 (10-20); CALCIUM 8.7 mg/dl (8.5-10.1); CREATININE 0.76 mg/dl (0.60-1.20)
--- NOTE | 2016-09-28 07:04 | HISTORY & PHYSICAL EXAMINATION ---
DATE OF ADMISSION: 09/30/2016 SUBJECTIVE/CHIEF COMPLAINT: Left shoulder pain. HISTORY OF PRESENT ILLNESS: The patient is a 46-year-old female who presents with left shoulder pain status post left shoulder subacromial decompression and biceps tenodesis. She states that the pain is aching, burning and sharp at times. She has tried cortisone injections and physical therapy without any relief. She would like to proceed with a left shoulder scope with open subpectoral biceps tenodesis. PAST MEDICAL HISTORY: Significant for hypertension, non-insulin dependent diabetes, shortness of breath while climbing up a flight of stairs and while walking, and GERD. PAST SURGICAL HISTORY: C-spine surgery, section, lymph node removal of the left arm, and left shoulder subacromial decompression. SOCIAL HISTORY: She denies alcohol use. She denies smoking or tobacco use. She denies IV drug use or illegal drug use. She lives in a 2-story house and she is currently on disability. FAMILY HISTORY: Significant for her dad having a heart attack. MEDICATIONS: Fluoxetine 20 mg 1 tablet in the morning, lisinopril 20 mg 1 tablet daily, metformin 500 mg 2 times daily, Neurontin 300 mg p.r.n., metformin 25 mg 1 tab daily, Prilosec 20 mg daily. ALLERGIES: TO AMOXICILLIN AND PENICILLIN. REVIEW OF SYSTEMS: She denies fevers, chills, headaches, weight loss, double vision, blurry vision, sore throat, hearing loss, tremors, dizziness, numbness, tingling, tired, thirsty, hot and cold intolerance, abdominal pain, nausea, vomiting, diarrhea, chest pain, swelling into the legs or feet, frequency going to the bathroom, pain or burning with urination, cough, shortness of breath, depression, thoughts to harm herself or harm others, nervousness or anxiousness. She is positive for joint pain and stiffness and swelling of the left shoulder. OBJECTIVE: GENERAL APPEARANCE: The patient is a 46-year-old female who is sitting in no acute distress. She is well dressed and well nourished. She is awake, alert and oriented x3. VITAL SIGNS: She is 5 feet 6 inches tall, 214 pounds, blood pressure is 140/80. HEENT: Extraocular movements are intact. PERRLA. Mucosa is moist. No septal deviation. NECK: Supple with no lymphadenopathy, no JVD, no thyromegaly. HEART: Regular rate and rhythm with no murmurs or gallops. LUNGS: Clear to auscultation. No wheezing or rhonchi. ABDOMEN: Soft, nontender, nondistended. Normal bowel sounds. No hepatosplenomegaly. EXTREMITIES: Paying particular attention to the left upper extremity, she is able to actively flex to 45 degrees, abduct to 45 degrees, and externally rotate to 30 degrees. She is painful over the biceps tendon and distally along the biceps. NEUROLOGIC: Cranial nerves II-XII are intact. Pulses are compared bilaterally and are equal. IMPRESSION: Left shoulder pain status post subacromial decompression, biceps tenodesis with re-rupture of the long head of the biceps. PLAN: The patient is scheduled for a left shoulder scope with open subpectoral biceps tenodesis. The patient has failed conservative therapies including cortisone injections and physical therapy. Her pain has gotten progressively worse. She wishes to proceed with a left shoulder scope, open subpectoral biceps tenodesis. Risks and benefits were discussed and include but not limited to infection, DVT, pain, stiffness, need for revision surgeries, failure to relieve all symptoms, retear, damage to blood vessels, damage to nerves, and anesthesia risks were all discussed with the patient and she wishes to proceed. All questions were answered to her satisfaction. JOSE ELIAS
[~2016-09-30] VITALS: Ht 167.6 cm; Wt 98.2 kg
[~2016-09-30 10:20] MED LIST changes: +CLINDAMYCIN 600 MG/54 ML D5W IV SCH; +FENTANYL CITRATE INJ 50 MCG/1 ML 2 ML VIAL ONE; +LACTATED RINGER'S 1000ML 1,000 ML IV SCH; -LIDOCAINE HCL 2% 2 ML VIAL (20MG/ML) ONE; +MIDAZOLAM HCL 1 MG/ML 2ML VIAL ONE; -OXYC-57 PO; -PROPOFOL IV EMULSION 10 MG/ML 20 ML VIAL IV ONE; +ROPIVACAINE 0.5% 5 MG/ML 30 ML VIAL ONE; -SODIUM CHLORIDE 0.9% 500ML 500 ML IV ONE
[2016-09-30 10:50] VITALS: BP 129/86; PULSE 79; TEMP 36.8; O2SAT 97; Ht 167.6 cm; Wt 98.2 kg
[2016-09-30] MEDS ORDERED: ATROPINE SULFATE 0.1 MG/ML 5ML SYR IV PRN (11:30)
[2016-09-30] MEDS ORDERED: FENTANYL CITRATE INJ 50 MCG/1 ML 2 ML VIAL IV PRN (11:30)
[2016-09-30] MEDS ORDERED: EpHEDrine SULFATE INJ 50 MG/ML AMP IV PRN (11:30)
[2016-09-30] MEDS ORDERED: ONDANSETRON INJ 2 MG/ML 2 ML VIAL IV PRN ×2 (11:30→14:45)
[2016-09-30] MEDS ORDERED: MIDAZOLAM HCL 1 MG/ML 2ML VIAL ONE (11:44)
[2016-09-30] MEDS ORDERED: SCOPOLAMINE 1.5 MG TDSY TD ONE (11:59)
[2016-09-30] MEDS ORDERED: EpINEphrine HCL INJ 1 MG/ML 5ML SYRINGE ONE (12:02)
[2016-09-30] MEDS ORDERED: LIDOCAINE/EPINEPHRINE 1% 20 ML VIAL ONE (12:02)
[2016-09-30] MEDS ORDERED: BUPIVACAINE 0.5 % 5 MG/1 ML MPF 30ML VIAL ONE (12:02)
[2016-09-30] MEDS ORDERED: BACITRACIN 50000 UNIT VIAL ONE (12:02)
[2016-09-30] MEDS ORDERED: LIDOCAINE HCL 2% 2 ML VIAL (20MG/ML) ONE (12:54)
[2016-09-30] MEDS ORDERED: DEXAMETHASONE SOD INJ 4 MG/ML VIAL ONE (12:54)
[2016-09-30] MEDS ORDERED: ONDANSETRON INJ 2 MG/ML 2 ML VIAL ONE (12:54)
[2016-09-30] MEDS ORDERED: PROPOFOL IV EMULSION 10 MG/ML 20 ML VIAL IV ONE (12:54)
[2016-09-30] MEDS ORDERED: EpHEDrine SULFATE 50MG/5ML SYR ONE (13:08)
[2016-09-30] MEDS ORDERED: OXYC-57 PO (14:28)
--- NOTE | 2016-09-30 14:38 | Discharge Instructions ---
Discharge Instructions Date of Service Sep 30, 2016. Visit Reason for Visit: Left Shoulder Bicipital Tendinitis Discharge Discharge Diagnosis / Problem: Left Shoulder Biceps Tendon Tear Discharge Goals Goal(s): Decrease discomfort, Improve function Activity Recommendations Activity Limitations: per Instructions/Follow-up section Anesthesia . Post Anesthesia Instructions: If you have had General Anesthesia or IV Sedation: * Do not drive today. * Resume driving when surgeon permits. * Do not make important decisions or sign legal documents today. * Call surgeon for: 1. Temperature elevations greater than 101 degrees F. 2. Uncontrollable pain. 3. Excessive bleeding. 4. Persistent nausea and vomiting. 5. Medication intolerance (nausea, vomiting or rash). * For nausea and vomiting use only clear liquids such as: tea, soda, bouillon until nausea subsides, then gradually increase diet as tolerated. * If you have any concerns or questions, call your surgeon's office. If physician is unavailable and it is an emergency, call 911 or go to the nearest emergency room. . Instructions / Follow-Up Instructions / Follow-Up Continue to use sling at all times until you see Dr Joya back in the office. You may remove for showering. Limit your flexing of the left elbow at this time. Do not lift anything with the left arm at this time. You will have a larger incision over your biceps area. This will need to be changed in 48 hours. Redress with 4x4 gauze and tape. [facility] DISCHARGE INSTRUCTIONS: SHOULDER ARTHROSCOPY with or without Distal Clavicle Excision SELF CARE INSTRUCTIONS AFTER: A. You are allowed to use your arm actively as comfort allows. Recommend NOT doing repetitive overhead activity or heavy lifting. B. You should start Physical Therapy within 1-3 days from your surgery. You will be provided a prescription with specific restrictions, if needed, at time of discharge. C. You can discontinue the sling as comfort allows within one to two days after surgery. A. At 48 hours post-operatively, you may change your dressing. . (Leave white steri-strips intact if present). Use band-aids on small incisions and change daily. You are allowed to shower at this time and get the incision area wet, but DO NOT soak or submerge incision area in water. (No baths, swimming pools, hot tubs) B. Do NOT apply soap or any ointment/lotions directly over incision. C. You may use ice as needed to operative shoulder SPECIAL CARE INSTRUCTIONS: VERY IMPORTANT TO READ AND REVIEW A. There are a few signs you need to watch for after you are home. Call [facility] at [phone] if you experience any of the following: a. Increased severe shoulder pain. Some pain is expected especially when you exercise b. Increased swelling in your shoulder or arm; pain or swelling in either upper extremity. (Note: swelling and stiffness is normal and expected for several weeks post op, depending on type of shoulder surgery you had). c. Any fluid or drainage from the incision; redness of the incision. d. Shortness of breath or chest pain. B. Please call [facility] at [phone] if you have any questions or concerns about your operation or recovery. C. Call your physician if: a. Temperature is greater than 101 degrees (F). b. Pain is not relieved by prescribed pain medications. c. Increase drainage or redness from incision. d. Unanswered questions or concerns. D. Pain Medication: a. You will be prescribed pain medication upon discharge that should last till your first post-operative appointment. b. You may also take Advil or Ibuprofen between medication doses if you do not have any contraindication to taking them. c. You may also take Advil or Ibuprofen in place of your pain medication if the pain is tolerable. d. If you experience nausea and/or skin rash, discontinue this medication and contact our office for an alternative medication. e. Caution- narcotic pain medication can cause constipation. FOLLOW UP VISIT: Please call [facility] at [phone] to schedule a follow up appointment 10-14 days from your surgery date. Diet Recommendations Recommended Home Diet: resume previous diet Procedures Procedures Performed: Left Shoulder Arthroscopy with Open Subpectoral Biceps Tenodesis Pending Studies Studies pending at discharge: no Medical Emergencies . Who to Call and When: Medical Emergencies: If at any time you feel your situation is an emergency, please call 911 immediately. . Non-Emergent Contact Non-Emergency issues call your: Surgeon Call Non-Emergent contact if: temperature is above 101.5, your pain is not controlled, your pain is worsening, wound has increased drainage, wound has increased redness . . "Provider Documentation" section prepared by Fredrick Draper. . [place] Drug Monitoring Program Search Results: patient reviewed within database, no issues identified
[2016-09-30] MEDS ORDERED: MoRPHine SULFATE 2 MG/ML CARP IV PRN (14:45)
[2016-09-30] MEDS ORDERED: OXYCODONE HCL IR 5 MG TAB (IMMEDIATE RELEASE) PO PRN ×2 (14:45)
[2016-09-30] MEDS ORDERED: ACETAMINOPHEN 325 MG TAB PO PRN (14:45)
[2016-09-30 15:13] VITALS: BP 145/78; PULSE 79; TEMP 36.5; O2SAT 93
--- NOTE | 2016-09-30 15:16 | Anesthesiology Progress Note ---
Anesthesia Post Op Note Date & Time Sep 30, 2016 at 15:16 Vital Signs Pain Intensity: 0 Vital Signs Past 12 Hours Date Time Temp Pulse Resp B/P (MAP) Pulse Ox O2 Delivery O2 Flow Rate FiO2 09/30/16 14:55 80 16 154/74 93 Room Air Mask 09/30/16 14:45 83 16 150/93 100 Mask 10 09/30/16 14:35 86 16 149/99 100 Mask 10 09/30/16 14:25 36.1 84 16 152/92 100 Mask 10 09/30/16 10:50 36.8 79 20 129/86 (100) 97 Room Air Notes Mental Status: alert / awake / arousable, participated in evaluation Pt Amnestic to Procedure: Yes Nausea / Vomiting: adequately controlled Pain: adequately controlled Airway Patency, RR, SpO2: stable & adequate BP & HR: stable & adequate Hydration State: stable & adequate Anesthetic Complications: no major complications apparent
[2016-09-30 15:43] VITALS: BP 116/58; PULSE 80; O2SAT 96
[2016-09-30 16:13] VITALS: BP 135/85; PULSE 82; TEMP 36.6; O2SAT 95
--- NOTE | 2016-09-30 16:56 | [facility] Operative Report ---
Operative Report Operative Date Sep 30, 2016. Pre-Operative Diagnosis Left shoulder pain status post subacromial decompression, biceps tenodesis with re-rupture of the long head of the biceps. Post-Operative Diagnosis Left shoulder pain status post subacromial decompression, biceps tenodesis with re-rupture of the long head of the biceps. Procedure(s) Performed Left Shoulder Arthroscopy with Open Subpectoral Biceps Tenodesis Surgeon Dr. Samir Joya Sour Bleaching Pleater Surgeon(s) Fredrick Draper PA-C Estimated Blood Loss 10 ml Findings above Specimens none per surgeon Drains 0 Anesthesia geta, interscalene Complication(s) None Disposition Recovery Room / PACU Indications 26-year-old female who previously undergone left shoulder arthroscopy and arthroscopic biceps tenodesis. She unfortunately had a failure of the biceps tenodesis with a prominent Justin deformity. We tried to treat her conservatively but she continued to have continued pain despite anti- inflammatories and physical therapy. She would like to proceed with arthroscopic evaluation of the joint and then open subpectoral biceps tenodesis. Description of Procedure Risks, benefits and alternatives to surgery including, but not limited to, infection DVT, pain, stiffness, need for revision surgery, failure to relieve all symptoms, damage to blood vessels, damage to nerves, risk of anesthesia were discussed with the patient and they wished to proceed. The patient was identified. Laterality was confirmed and marked. The patient received a preoperative antibiotic as well as an interscalene block. They were transferred to the operating room and placed in the supine position and induced into general endotracheal anesthesia per the anesthesia staff. The patient was then safely transferred to the lateral decubitus position, secured by a beanbag. An axillary roll was placed. All pressure points were well-padded. The limb was placed in 10 pounds of lateral traction and then prepped and draped in the usual standard manner with ChloraPrep. The portal sites were anesthetized with 2% lidocaine with epinephrine. I made a standard posterior viewing portal made through a stab incision and then bluntly entered the glenohumeral joint. Then under spinal needle localization, I establish an anterior superolateral portal. The cartilage of the humeral head [was normal]. The cartilage of the glenoid [was normal]. The glenoid labrum had evidence of her prior detachment of the biceps tendon The long head of the biceps tendon was absent. The subscapularis [was normal]. The undersurface of the rotator cuff [was intact]. The sutures from the prior arthroscopic biceps tenodesis were visible in the joint and were intact. My suspicion is that the tendon tore through the sutures. I debrided the remaining suture material. I then removed the instrumentation from the joint. I then made a longitudinal incision over the anterior aspect of the arm sharply incising the skin and using Bovie electrocautery to achieve hemostasis. I developed the deltopectoral interval proximally and dissected down to the bicipital groove. I then identified the residual long head of biceps tendon within its tendon sheath. The tendon was severely tendon or neck. I then mobilized and identified it distally to the pec tendon. I mobilized it from underneath the pectoralis tendon. Essentially the entire continuity of the long head of biceps tendon was tendon are intact. I excised the more proximal aspect of it but the attending quality was poor bilaterally down to the muscle. I whipstitched the tendon that was remaining with #2-0 interrupted suture uses to tension the biceps. I bluntly released the biceps to mobilize it back approximately. The region where I felt we would have the best tensioning disposition of the long head of the biceps was in the region where it humerus had become a bit triangular and it was the insertion of the deltoid tendon so I elected to place the screw fixation a little more medially as to get a better flush drill hole and not to violate her deltoid tendon. I measured the residual tendon for a size 7 screw[address] Pl[address] a guidepin into the humerus and then overreamed unicortical and then tapped for depth of 15 mm. I then pulled one of the suture limbs through the screw using a nitinol wire. I docked the tendon into the bone and advanced it holding tension with the screw and then advanced the dish person flush with bone. There was good tension to the tendon and good reapproximation of the box biceps proximally. However again I'm concerned about the quality of her tendon tissue even with the interference screw fixation. He was thoroughly irrigated subcutaneous change tissues closed with interrupted 3-0 Vicryl suture in a subcuticular VueLock placed and Steri- Strips. A sterile dressing was applied and a sling placed. All needle and sponge counts were correct at the end of the procedure. The patient was transferred to the PACU in stable condition without apparent complication. I attest to the content of the Intraoperative Record and any orders documented therein. Any exceptions are noted below.
== END 2016-09-30 16:22 | disposition home or self-care (01) ==
LOC: C.ACU 10:20
PROVIDERS: ATTEND Orthopaedic Surgery
DX: M66.812 Spontaneous rupture of other tendons, left shoulder (principal); I10 Essential (primary) hypertension; E11.9 Type 2 diabetes mellitus without complications; K21.9 Gastro-esophageal reflux disease without esophagitis; Z82.49 Family history of ischemic heart disease and other diseases of the circulatory system; E78.5 Hyperlipidemia, unspecified; G25.81 Restless legs syndrome; Z79.84 Long term (current) use of oral hypoglycemic drugs

== ENCOUNTER → 2017-03-30 | Outpatient (CLI) | payer OTHER ==
[~2017-03-30] MED LIST changes: -CLINDAMYCIN 600 MG/54 ML D5W IV SCH; -FENTANYL CITRATE INJ 50 MCG/1 ML 2 ML VIAL ONE; -LACTATED RINGER'S 1000ML 1,000 ML IV SCH; -MIDAZOLAM HCL 1 MG/ML 2ML VIAL ONE; +OXYC-57 PO; -ROPIVACAINE 0.5% 5 MG/ML 30 ML VIAL ONE
--- NOTE | 2017-04-01 08:26 | MAMMOGRAPHY REPORT ---
BILATERAL DIGITAL DIAGNOSTIC MAMMOGRAM TOMOSYNTHESIS WITH CAD AND TARGETED RIGHT ULTRASOUND: 8 CLINICAL HISTORY: The patient reports a palpable right axillary lump for approximately one year which she believes has increased in size. She has a history of a prior excision of a left axillary lymph node which was benign. TECHNIQUE: Breast tomosynthesis in addition to standard 2D mammography was performed. Current study was also evaluated with a Computer Aided Detection (CAD) system. Bilateral CC and MLO 2-D and tomosy nthesis images were obtained. COMPARISON: Prior outside mammograms dated 01/19/2012. BREAST COMPOSITION: There are scattered areas of fibroglandular density in both breasts. FINDINGS: A triangle marker joel the site of the palpable lump in the right axillary region. Morph ologically normal lymph nodes are seen within the right axillary region which appear stable compared to the 2012 exam. Remainder of both breasts are also stable compared to the prior exam, without susp icious masses, calcifications, or areas of architectural distortion noted. Left breast asymmetries a re stable. Targeted ultrasound was performed of the area of the palpable lump pointed out by the patient in the right axillary region. At the site of the palpable lump there is an oval morphologically normal righ t axillary lymph node which measures 2.4 x 0.9 cm. The lymph node has a normal fatty hilum and thin peripheral cortex. This corresponds with one of the lymph nodes seen mammographically which is stabl e compared to the 2012 exam. Other morphologically normal right axillary lymph nodes are seen, witho ut evidence of adenopathy. No suspicious masses or other suspicious sonographic abnormalities are no sobeida. IMPRESSION: ACR BI-RADS CATEGORY 2: BENIGN, TARGETED ULTRASOUND ACR BI-RADS CATEGORY 2: BENIGN The palpable lump in the right axilla corresponds with a morphologically normal right axillary lymph node. There is no mammographic or targeted sonographic evidence of malignancy. Recommend clinical fo llow-up for the right axillary palpable lump, and recommend routine bilateral screening mammograms in one year. The patient has been verbally notified of the results. Approximately 10% of breast cancers are not detected with mammography. A negative mammographic report should not delay biopsy if a clinically suggestive mass is present. Camilla Villa M.D. ah/:03/30/2017 14:38:17 Digital Intern: Laura KOEHLER(R)(M), [facility] letter sent: Normal 1/2 BI-RADS Code: ACR BI-RADS Category 2: Benign Ultrasound BI-RADS: ACR BI-RADS Category 2: Benign
== END | disposition home or self-care (01) ==
LOC: C.MAMM 12:42
PROVIDERS: ATTEND Family Medicine
DX: R22.9 Localized swelling, mass and lump, unspecified (principal)

== ENCOUNTER → 2017-04-28 | Outpatient (CLI) | payer OTHER ==
[~2017-04-28] MED LIST changes: -OXYC-57 PO
[2017-04-28 17:41] LABS: BASO % 0.7 %; BASO ABS # 0.04 K/uL (0-0.2); EOS % 3.8 %; EOS ABS # 0.23 K/uL (0-0.5); HEMATOCRIT 40.7 % (37-47); HEMOGLOBIN 13.7 g/dL (12.0-16.0); IG# 0.05 K/uL (0.00-0.02); LYMPH % 29.3 %; LYMPH ABS # 1.78 K/uL (1.2-3.4); MEAN CELL VOLUME 87.7 fL (80-100); MEAN CORPUSCULAR HEMOGLOBIN 29.5 pg (25-34); MEAN CORPUSCULAR HGB CONC 33.7 g/dl (32-36); MONO % 3.8 %; MONO ABS # 0.23 K/uL (0.11-0.59); NEUT % 61.6 %; NEUT ABS # 3.74 K/uL (1.4-6.5); PLATELET COUNT 258 K/uL (130-400); RED CELL DISTRIBUTION WIDTH CV 12.7 % (11.5-14.5); RED CELL DISTRIBUTION WIDTH SD 40.5 fL (36.4-46.3); WHITE BLOOD COUNT 6.07 K/uL (4.8-10.8)
[2017-04-28 17:42] LABS: ALBUMIN 3.5 gm/dl (3.4-5.0); ALT/SGPT 80 U/L (12-78); BLOOD UREA NITROGEN 8 mg/dl (7-18); CALCIUM 8.9 mg/dl (8.5-10.1); CARBON DIOXIDE 27 mmol/L (21-32); CREATININE 0.83 mg/dl (0.60-1.20); GLUCOSE 133 mg/dl (70-99); POTASSIUM 3.5 mmol/L (3.5-5.1); SODIUM 136 mmol/L (136-145)
[2017-04-28 17:45] LABS: ALKALINE PHOSPHATASE 96 U/L (45-117); AST/SGOT 70 U/L (15-37); TOTAL PROTEIN 7.4 gm/dl (6.4-8.2)
== END | disposition home or self-care (01) ==
LOC: C.LABPBG 10:51
PROVIDERS: ATTEND Psychiatry & Neurology Neurology
DX: Z00.00 Encounter for general adult medical examination without abnormal findings (principal); K76.0 Fatty (change of) liver, not elsewhere classified; E11.9 Type 2 diabetes mellitus without complications

== ENCOUNTER → 2017-05-02 | Outpatient (CLI) | payer OTHER ==
[~2017-05-02] MED LIST changes: +GADAVIST IV PRN
--- NOTE | 2017-05-02 13:33 | DIAGNOSTIC IMAGING REPORT ---
NECK MRA HISTORY: G45.0 Vertebrobasilar TIAs, dizziness, blurred vision, headaches. TECHNIQUE: [id number] and gadolinium-enhanced MRA of the neck was performed both before and after the intravenous administration of contrast. All measurements were calculated based on NASCET criteria. The patient was administered 9 cc of intravenous Gadavist COMPARISON STUDY: None. FINDINGS: The aortic arch and proximal great vessels are widely patent. There is no significant stenosis, occlusion, or dissection identified within the bilateral common carotid, internal carotid, or vertebral arteries. There is a dominant left vertebral. It is possible that the right vertebral terminates in a PICA branch. There is very minimal nonhemodynamically significant narrowing of the mid left vertebral artery. IMPRESSION: No significant stenosis, occlusion, or dissection identified within the carotid or vertebral arteries. Electronically signed by: Brennon Fountain M.D. 05/02/2017 1:31 PM Dictated Date/Time: 05/02/2017 1:27 PM
--- NOTE | 2017-05-02 13:38 | DIAGNOSTIC IMAGING REPORT ---
MR ANGIOGRAM OF THE BRAIN CLINICAL HISTORY: Vertebrobasilar transient ischemic attacks. Dizziness. Blurry vision. Headaches. COMPARISON STUDY: No priors. TECHNIQUE: 3-D [id number] MR angiography of the intracranial circulation is performed. 3-D tumble views are created and assessed. IV contrast was not administered for this examination. FINDINGS: There is a right posterior communicating artery. The internal carotid arteries are widely patent bilaterally, as are the anterior and middle cerebral arteries. The vertebrobasilar system and posterior cerebral arteries are widely patent. The left vertebral artery is dominant and the right vertebral artery is diminutive. There is no aneurysm, high-grade stenosis, or focal vessel cutoff seen throughout the intracranial circulation. The brain parenchyma is normal as visualized. IMPRESSION: Unremarkable MR angiogram of the brain. Electronically signed by: Frandy Miranda M.D. 05/02/2017 1:36 PM Dictated Date/Time: 05/02/2017 1:27 PM
== END | disposition home or self-care (01) ==
LOC: C.MRI 12:23
PROVIDERS: ATTEND Psychiatry & Neurology Neurology
DX: G45.0 Vertebro-basilar artery syndrome (principal)

== ENCOUNTER → 2017-06-21 | Outpatient (CLI) | payer OTHER ==
[~2017-06-21] MED LIST changes: -GADAVIST IV PRN
[2017-06-21 13:38] LABS: BLOOD UREA NITROGEN 9 mg/dl (7-18); CREATININE 0.85 mg/dl (0.60-1.20)
== END | disposition home or self-care (01) ==
LOC: C.LABPBG 11:05
PROVIDERS: ATTEND Physician Assistant
DX: M54.2 Cervicalgia (principal)

== ENCOUNTER → 2017-10-04 | Outpatient (CLI) | payer OTHER ==
[2017-10-04 13:03] LABS: BASO % 0.5 %; BASO ABS # 0.03 K/uL (0-0.2); EOS % 3.6 %; EOS ABS # 0.21 K/uL (0-0.5); HEMATOCRIT 40.4 % (37-47); HEMOGLOBIN 13.8 g/dL (12.0-16.0); IG# 0.04 K/uL (0.00-0.02); LYMPH % 32.8 %; LYMPH ABS # 1.89 K/uL (1.2-3.4); MEAN CELL VOLUME 84.9 fL (80-100); MEAN CORPUSCULAR HGB CONC 34.2 g/dl (32-36); MEAN PLATELET VOLUME 8.8 fL (7.4-10.4); MONO % 4.9 %; MONO ABS # 0.28 K/uL (0.11-0.59); NEUT % 57.5 %; NEUT ABS # 3.31 K/uL (1.4-6.5); PLATELET COUNT 248 K/uL (130-400); RED CELL DISTRIBUTION WIDTH CV 12.7 % (11.5-14.5); RED CELL DISTRIBUTION WIDTH SD 39.2 fL (36.4-46.3); WHITE BLOOD COUNT 5.76 K/uL (4.8-10.8)
[2017-10-04 13:45] LABS: HEMOGLOBIN A1C 7.2 % (4.5-5.6)
[2017-10-04 14:10] LABS: ALBUMIN 3.8 gm/dl (3.4-5.0); ALKALINE PHOSPHATASE 105 U/L (45-117); ALT/SGPT 61 U/L (12-78); AST/SGOT 49 U/L (15-37); BLOOD UREA NITROGEN 11 mg/dl (7-18); CALCIUM 8.9 mg/dl (8.5-10.1); CARBON DIOXIDE 25 mmol/L (21-32); CHOLESTEROL 154 mg/dl (0-200); GLUCOSE 145 mg/dl (70-99); LDL CHOLESTEROL CALCULATED 72 mg/dl; POTASSIUM 3.9 mmol/L (3.5-5.1); SODIUM 136 mmol/L (136-145); TOTAL PROTEIN 7.7 gm/dl (6.4-8.2)
== END | disposition home or self-care (01) ==
LOC: C.LABPBG 10:34
PROVIDERS: ATTEND Family Medicine
DX: E11.9 Type 2 diabetes mellitus without complications (principal); R53.83 Other fatigue; R06.09 Other forms of dyspnea; K76.0 Fatty (change of) liver, not elsewhere classified